=== PATIENT | male | born 1940 | race Caucasian/White ===

== ENCOUNTER 2017-08-17 09:11 | Inpatient (IN) | payer OTHER ==
[~2017-08-17] VITALS: Ht 177.8 cm; Wt 57.9 kg
--- NOTE | ~2017-08-17 | HC ---
[facility] [place] [address] CONSULTATION Name: SUKHJINDER HILL Room #: 411-P [facility] IN M.R.#: [id number] Admission: 08/17/17 Attend Phys: Liliana Jalloh MD Discharge: Date of : 42 Report #: [id number] THIS REPORT FOR: //name// CC: Liliana Jalloh DATE OF SERVICE: 08/19/2017 CHIEF COMPLAINT: Multiple ulcerations. HISTORY OF PRESENT ILLNESS: This is a 77-year-old male patient, seen in his room today. I have been asked to see him with regard to multiple abrasions to the lower extremities and the right iliac crest region. The patient was admitted to the Emergency Room with generalized weakness. It is unclear as to whether he had fallen at home. He was, however, found on the floor without the strength to get up and was brought in to the hospital for further evaluation and treatment. PAST MEDICAL HISTORY: The patient's past medical history is really unremarkable for significant previous illness or injury. FAMILY HISTORY: Unknown. SOCIAL HISTORY: The patient lives alone with no history of alcohol or tobacco use. ALLERGIES: None. MEDICATIONS: Have been none prior to this hospitalization. REVIEW OF SYSTEMS: CONSTITUTIONAL: The patient denies fever, chills or weight loss. NEUROLOGICAL: The patient does complain of generalized weakness. Denies focal weakness. EYES: The patient denies visual changes, redness or drainage. ENT: The patient denies earache, nasal drainage, sore throat. CARDIOVASCULAR: The patient denies chest pain, palpitations, or diaphoresis. PULMONARY: The patient denies cough, shortness of breath. GASTROINTESTINAL: The patient denies nausea, vomiting, diarrhea, or abdominal pain. ORTHOPEDIC: The patient does note ulceration on his legs, he is aware. Other systems in a 12-point review of systems are negative. PHYSICAL EXAMINATION: VITAL SIGNS: At this time include pulse 65, blood pressure 118/72, respiratory rate 18, temperature 98.7. GENERAL: This is a chronically ill-appearing male patient who appears to be in [address] [address] CONSULTATION Name: SUKHJINDER HILL Room #: 411- ADM IN M.R.#: [id number] Admission: 08/17/17 Attend Phys: Liliana Jalloh MD Discharge: Date of : 41 Report #: [id number] no obvious distress. HEENT: Head is normocephalic. Nose is clear. NECK: Supple. LUNGS: Clear. HEART: Regular rhythm. ABDOMEN: Soft, bowel sounds present. GENITOURINARY: Demonstrates testes are descended bilaterally. He has some ecchymosis to the shaft of his penis. There is no open ulceration, no evidence of infection. He has an abrasion to the right lateral proximal fibular region. EXTREMITIES: He has abrasion to the left lateral ankle and left pretibial region, left lateral knee and right lateral ankle. BACK: Demonstrates abrasions and some eschar on the right iliac crest region and some small eschar on the left medial heel, once again possibly traumatic in origin. CLINICAL IMPRESSION: 1. Multiple abrasions including both lower extremities and the right posterior iliac crest. 2. Generalized weakness. RECOMMENDATIONS: At this point in time, we will use Betadine to the areas of eschar. We will place a bordered foam to the right iliac crest. Recommend turning and repositioning, aggressive nutritional support for wound healing. I appreciate being asked to see him in consultation. <ELECTRONICALLY SIGNED> By: Ronnie Mabry MD 08/20/17 1005 1833 02 Ronnie Mabry MD /nt
--- NOTE | ~2017-08-17 | EKG ---
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
--- NOTE | ~2017-08-17 | 2DMMODE ---
[facility] [address] [place] [address] 2 D/M-MODE ECHOCARDIOGRAM Name: SUKHJINDER HILL Room #: 208-P ADM IN M.R.#: [id number] Admission: 08/17/17 Attend Phys: Natali Dennis Discharge: Date of : 42 Date of Service: 08/20/17 1630 Report #: [id number] THIS REPORT FOR: //name// APPROVED REPORT Study performed: 08/20/2017 15:24:59 EXAM: Comprehensive 2D, Doppler, and color-flow Echocardiogram Patient Location: Bedside Room #: 208 Status: routine BSA: 1.79 HR: 68 bpm BP: 133/88 mmHg Other Information Study Quality: Adequate Indications svt 2D Dimensions RVDd: 33.51 mm LVEF(%): 74.34 (>50%) IVSd: 9.30 (7-11mm) LVOT Diam: 21.66 (18-24mm) LVDd: 50.29 mm PWd: 8.93 (7-11mm) Ascending Ao: 36.35 (22-36mm) LVDs: 28.46 (25-40mm) Aortic Root: 34.95 mm IVC: 21.00 mm Newman's LVEF: 74.34 % Volumes Left Atrial Volume (Systole) Single Plane 4CH: 65.54 mL Single Plane 2CH: 60.67 mL LA ESV Index: 40.00 mL/m2 Aortic Valve AoV Peak Edilberto.: 1.44 m/s AO Peak Gr.: 8.25 mmHg LVOT Max P.30 mmHg LVOT Max V: 1.04 m/s JOHANNY Vmax: 2.66 cm2 Mitral Valve E/A Ratio: 0.7 MV Decel. Time: 272.10 ms MV E Max Edilberto.: 1.01 m/s [facility] [place] [address] 2 D/M-MODE [facility]ARDIOGRAM [facility]: [facility] #: [facility]-P [facility] IN M.R.#: [id number] Admission: 08/17/17 Attend Phys: Natali Dennis Discharge: Date of : 41 Date of Service: 08/20/17 1630 Report #: [id number] MV A Edilberto.: 1.36 m/s MV PHT: 78.91 ms IVRT: 110.73 ms Pulmonary Valve PV Peak Edilberto.: 1.04 m/s PV Peak Gr.: 4.31 mmHg IN End Vmax: 1.13 m/s Pulmonary Vein P Vein S: 0.91 m/s P Vein A: 0.32 m/s P Vein D: 0.37 m/s P Vein A Dur.: 110.7 msec P Vein S/D Ratio: 2.46 Tricuspid Valve TR Peak Edilberto.: 2.46 m/s TR Peak Gr.: 24.14 mmHg PA Pressure: 34.00 mmHg Left Ventricle The left ventricle is normal size. There is normal left ventricular wall thickness. The left ventricular systolic function is normal. The left ventricular ejection fraction is within the normal range. LVEF is 60-65%. Grade I - abnormal relaxation pattern. Right Ventricle The right ventricle is normal size. Atria Left atrium is dilated. The right atrium size is normal. Aortic Valve The aortic valve is normal in structure. Aortic valve is calcified. No aortic regurgitation is present. There is no aortic valvular stenosis. Mitral Valve The mitral valve is normal in structure. Trace mitral regurgitation. No evidence of mitral valve stenosis. Tricuspid Valve The tricuspid valve is normal in structure. There is trace tricuspid regurgitation.Estimated PAP 34 mmHg. There is mild pulmonary hypertension. Pulmonic Valve The pulmonary valve is normal in structure. Trace pulmonic [facility] [address] [place] [address] 2 D/M-MODE ECHOCARDIOGRAM Name: SUKHJINDER HILL Room #: 208-P [facility] IN [facility].#: [id number] Admission: 08/17/17 Attend Phys: Natali Dennis Discharge: Date of : 42 Date of Service: 08/20/17 1630 Report #: [id number] regurgitation. Great Vessels The aortic root is normal in size. IVC is dilated and collapses >50% with inspiration. Pericardium There is no pericardial effusion. <Conclusion> The left ventricle is normal size. LVEF is 60-65%. Left atrium is dilated. The aortic valve is normal in structure. Aortic valve is calcified. No aortic regurgitation is present. There is no aortic valvular stenosis. The mitral valve is normal in structure. Trace mitral regurgitation. The tricuspid valve is normal in structure. There is trace tricuspid regurgitation.Estimated PAP 34 mmHg. There is mild pulmonary hypertension. The pulmonary valve is normal in structure. Trace pulmonic regurgitation. There is no pericardial effusion. <ELECTRONICALLY SIGNED> By: Tye Henning MD 08/20/171629 29 29 Tye Henning MD /INF
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
--- NOTE | ~2017-08-17 | EKG ---
[address] [facility] [place] [address] ELECTROCARDIOGRAM REPORT Name: SUKHJINDER HILL Room #: 208-P ADM IN M.R.#: [id number] Admission: 08/17/17 Attend Phys: Liliana Jalloh MD Discharge: Date of : 42 Report #: [id number] THIS REPORT FOR: //name// [facility] Test Date: 2017-08-20 Test Time: 13:34:00 Pat Name: SUKHJINDER HILL Department: Room: 208 P Gender: M Biology Manager: Juan RAMIREZ : 1940 Requested By: Donal Sutton Order Number: [id number] MD: Gama Bauer Measurements Intervals [place] Rate: 70 P: 135 [place]: 219 QRS: -18 QRSD: 105 T: 46 QT: 414 QTc: 447 Interpretive Statements Sinus or ectopic atrial rhythm Borderline left axis deviation Electronically Signed On 08-20-2017 23:04:16 STUDENT ASSISTANT by Gama Bauer [email or web address] <ELECTRONICALLY SIGNED> By: Gama Bauer MD 08/20/17 2304 1334 1334 MD JOSE JUAN Downey
--- NOTE | ~2017-08-17 | EKG ---
[address] [place] [address] ELECTROCARDIOGRAM REPORT Name: SUKHJINDER HILL Room #: 411-P ADM IN M.R.#: [id number] Admission: 08/17/17 Attend Phys: Liliana Jalloh MD Discharge: Date of : 41 Report #: [id number] THIS REPORT FOR: //name// 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 : 1940 Requested By: Donal Sutton Order Number: [id number] MD: Gama Bauer Measurements Intervals [place] Rate: 187 P: 0 [place]: 39 QRS: -33 QRSD: 89 T: 141 QT: 273 QTc: 482 Interpretive Statements Supraventricular tachycardia Left axis deviation Repolarization abnormality, prob rate related Compared to ECG 08/17/2017 09:50:42 Early repolarization now present Sinus rhythm no longer present Electronically Signed On 08-20-2017 11:43:37 GLOBAL PRODUCT MANAGER by Gama Bauer [email or web address] <ELECTRONICALLY SIGNED> By: Gama Bauer MD 08/20/17 1143 1135 1135 Gama Bauer MD /EPI
[2017-08-17 09:13] VITALS: BP 130/70
[2017-08-17 09:48] LABS: ABSOLUTE NEUTROPHILS 13.6 thou/uL (1.4-8.2); BASOPHILS 0.1 % (0.0-2.0); HEMATOCRIT 35.8 % (42.0-52.0); HEMOGLOBIN 12.5 gm/dL (14.0-18.0); LYMPHOCYTES 2.8 % (24.0-44.0); MCH 32.2 pg (26.0-34.0); MCHC 34.8 g/dL (28.0-37.0); MCV 92.7 fL (80.0-100.0); MONOCYTES 5.3 % (1.0-8.0); PLATELET COUNT 160 thou/uL (150-400); POLYS 91.8 % (36.0-66.0); RBC 3.86 mil/uL (4.50-6.00); RDW 14.2 % (10.5-14.5); WBC 14.8 thou/uL (4.0-11.0)
[2017-08-17 10:04] LABS: CREATININE 1.4 mg/dL (0.7-1.3); POTASSIUM 3.4 mmol/L (3.5-5.1)
[2017-08-17 10:13] LABS: TROPONIN-I 0.11 ng/mL (<0.06)
[2017-08-17 10:16] LABS: URINE BILIRUBIN NEGATIVE (Negative); URINE BLOOD 3+ (Negative); URINE CLARITY SL CLOUDY; URINE COLOR YELLOW; URINE GLUCOSE-RANDOM* NEGATIVE (Negative); URINE KETONES TRACE (Negative); URINE LEUKOCYTES NEGATIVE (Negative); URINE NITRITE NEGATIVE (Negative); URINE PROTEIN (DIPSTICK) 1+ (Negative); URINE SPECIFIC GRAVITY >= 1.030 (1.005-1.035); URINE UROBILINOGEN 0.2 E.U./dl (0.2-1.0)
[2017-08-17 11:05] LABS: CASTS None Seen /LPF (None Seen); COARSE GRANULAR CASTS 0-3 Few /LPF (None Seen); CRYSTALS None Seen /LPF (None Seen); FINE GRANULAR CASTS 0-3 Few /LPF (None Seen); HYALINE CASTS 0-3 Few /LPF (None Seen); MUCUS >6 Heavy strn/LPF (None Seen); SQUAMOUS 4-10 Moderate /LPF (0-3)
[2017-08-17 11:06] LABS: URINE RBC 3-10 Few /HPF (0-2); URINE WBC None Seen /HPF (0-5)
[2017-08-17 11:09] LABS: BACTERIA None Seen /HPF (None Seen)
[2017-08-17 11:47] VITALS: BP 130/70
[2017-08-17 12:03] VITALS: BP 133/56
[2017-08-17 12:12] VITALS: BP 132/78
[2017-08-17 16:00] VITALS: BP 116/65
[2017-08-17 18:50] VITALS: BP 135/86
[2017-08-18 04:00] VITALS: BP 120/69
[2017-08-18 06:23] LABS: HEMATOCRIT 29.8 % (42.0-52.0); MCH 32.7 pg (26.0-34.0); MCHC 34.7 g/dL (28.0-37.0); MCV 94.3 fL (80.0-100.0); RBC 3.17 mil/uL (4.50-6.00); RDW 14.3 % (10.5-14.5); WBC 11.3 thou/uL (4.0-11.0)
[2017-08-18 06:25] LABS: HEMOGLOBIN 10.4 gm/dL (14.0-18.0)
[2017-08-18 06:36] LABS: CALCIUM 8.2 mg/dL (8.5-10.1); CREATININE 0.9 mg/dL (0.7-1.3); POTASSIUM 3.3 mmol/L (3.5-5.1)
[2017-08-18 08:00] VITALS: BP 143/99
[2017-08-18 16:00] VITALS: BP 130/80
[2017-08-18 20:32] VITALS: BP 129/77
[2017-08-19 04:05] VITALS: BP 120/73
[2017-08-19 07:01] LABS: ALBUMIN 2.6 g/dL (3.4-5.0); CALCIUM 8.3 mg/dL (8.5-10.1); CREATININE 0.9 mg/dL (0.7-1.3); POTASSIUM 3.8 mmol/L (3.5-5.1); TOTAL BILIRUBIN 0.7 mg/dL (<0.1-1.0); TOTAL PROTEIN 5.4 g/dL (6.4-8.2)
[2017-08-19 09:53] VITALS: BP 118/72
[2017-08-19 20:39] VITALS: BP 132/75
[2017-08-20 04:40] VITALS: BP 143/77
[2017-08-20 06:48] LABS: CALCIUM 8.2 mg/dL (8.5-10.1); CREATININE 0.8 mg/dL (0.7-1.3); POTASSIUM 3.7 mmol/L (3.5-5.1)
[2017-08-20 08:00] VITALS: BP 132/86
[2017-08-20 14:08] LABS: ALBUMIN 2.7 g/dL (3.4-5.0); DIRECT BILIRUBIN 0.2 mg/dL (<0.1-0.3); TOTAL BILIRUBIN 0.8 mg/dL (<0.1-1.0); TOTAL PROTEIN 5.1 g/dL (6.4-8.2)
[2017-08-20 21:15] VITALS: BP 128/68
[2017-08-21 00:53] VITALS: BP 103/57
[2017-08-21 03:46] LABS: HEMOGLOBIN 10.9 gm/dL (14.0-18.0); MCH 32.7 pg (26.0-34.0); MCV 93.4 fL (80.0-100.0); RBC 3.32 mil/uL (4.50-6.00); RDW 13.9 % (10.5-14.5); WBC 9.8 thou/uL (4.0-11.0)
[2017-08-21 03:58] LABS: ALBUMIN 2.7 g/dL (3.4-5.0); CALCIUM 8.5 mg/dL (8.5-10.1); CREATININE 0.8 mg/dL (0.7-1.3); TOTAL BILIRUBIN 0.8 mg/dL (<0.1-1.0); TOTAL PROTEIN 5.7 g/dL (6.4-8.2)
[2017-08-21 04:05] VITALS: BP 125/80
[2017-08-21 09:31] VITALS: BP 142/80
[2017-08-21 15:14] VITALS: BP 123/66
[2017-08-21 19:32] VITALS: BP 129/75
[2017-08-22 04:40] VITALS: BP 164/76
[2017-08-22 04:49] LABS: ALBUMIN 2.8 g/dL (3.4-5.0); CALCIUM 8.6 mg/dL (8.5-10.1); CREATININE 0.9 mg/dL (0.7-1.3); POTASSIUM 4.6 mmol/L (3.5-5.1); TOTAL BILIRUBIN 0.7 mg/dL (<0.1-1.0); TOTAL PROTEIN 5.8 g/dL (6.4-8.2)
[2017-08-22] MEDS ORDERED: FLOMAX0.4 MG PO (11:09)
[2017-08-22] MEDS ORDERED: BISAC-EVAC10 MG RECTAL (11:10)
[2017-08-22] MEDS ORDERED: LACTULOSE20 GM/30 M PO (11:10)
[2017-08-22] MEDS ORDERED: MIRALAX17 GM PO (11:10)
[2017-08-22] MEDS ORDERED: VERAPAMIL HCL 880 M1 PO (11:10)
[2017-08-22] MEDS ORDERED: ACETAMINOPHEN325 M1 PO (11:10)
[2017-08-22 12:00] VITALS: BP 113/65
[2017-08-22 14:21] VITALS: BP 113/65
[2017-08-22 16:10] LABS: HAV IgM AB (ANTI-HAV IgM) Negative (Negative); HEPATITIS B SURFACE AG Negative (Negative); HEPATITIS C VIRUS AB <0.1 (0.0-0.9)
== END 2017-08-22 15:04 | DRG 683 ==
LOC: ER 09:11 → EROBS 10:39 → 4N 10:39 → 2N 08-20 12:13
PROVIDERS: Emergency Medicine; Internal Medicine; Internal Medicine Geriatric Medicine
DX: N17.9 Acute kidney failure, unspecified (principal); M62.82 Rhabdomyolysis; I47.1 Supraventricular tachycardia; E44.0 Moderate protein-calorie malnutrition; Z68.1 Body mass index [BMI] 19.9 or less, adult; Z60.2 Problems related to living alone; R54 Age-related physical debility; S90.812A Abrasion, left foot, initial encounter; W18.39XA Other fall on same level, initial encounter; N40.0 Benign prostatic hyperplasia without lower urinary tract symptoms; I10 Essential (primary) hypertension; S09.90XA Unspecified injury of head, initial encounter; Y93.89 Activity, other specified; Y92.89 Other specified places as the place of occurrence of the external cause; Y99.8 Other external cause status
CPT/HCPCS: 10081; 10091

== ENCOUNTER 2018-07-23 08:07 | Inpatient (IN) | payer OTHER ==
[~2018-07-23] VITALS: Ht 167.6 cm; Wt 68.0 kg
[~2018-07-23 08:07] MED LIST: ACETAMINOPHEN325 M1 PO; BISAC-EVAC10 MG RECTAL; FLOMAX0.4 MG PO; LACTULOSE20 GM/30 M PO; MIRALAX17 GM PO; VERAPAMIL HCL 880 M1 PO
[2018-07-23 08:08] VITALS: BP 158/86
[2018-07-23] MEDS ORDERED: VERAPAMIL E.R240 M1 PO (08:20)
[2018-07-23] MEDS ORDERED: SERTRALINE HCL50 MG PO (08:20)
[2018-07-23] MEDS ORDERED: MAPAP325 MG PO (08:21)
[2018-07-23] MEDS ORDERED: COLACE100 MG PO (08:21)
[2018-07-23 08:22] LABS: ABSOLUTE NEUTROPHILS 5.1 thou/uL (1.4-8.2); BASOPHILS 0.7 % (0.0-2.0); EOSINOPHILS 2.4 % (0.0-3.0); HEMATOCRIT 35.2 % (42.0-52.0); HEMOGLOBIN 12.7 gm/dL (14.0-18.0); LYMPHOCYTES 15.9 % (24.0-44.0); MCH 33.7 pg (26.0-34.0); MCV 93.7 fL (80.0-100.0); MONOCYTES 8.4 % (1.0-8.0); PLATELET COUNT 201 thou/uL (150-400); POLYS 72.6 % (36.0-66.0); RBC 3.75 mil/uL (4.50-6.00); RDW 13.6 % (10.5-14.5)
[2018-07-23] MEDS ORDERED: LOPERAMIDE 2 MG2 M1 PO (08:23)
[2018-07-23] MEDS ORDERED: NYSTATIN15 G3 TOP (08:24)
[2018-07-23 08:28] LABS: CALCIUM 8.8 mg/dL (8.5-10.1); CREATININE 0.8 mg/dL (0.7-1.3)
[2018-07-23 08:32] LABS: POTASSIUM 2.7 mmol/L (3.5-5.1)
[2018-07-23 08:34] LABS: ALBUMIN 3.3 g/dL (3.4-5.0); TOTAL BILIRUBIN 0.7 mg/dL (<0.1-1.0); TOTAL PROTEIN 6.1 g/dL (6.4-8.2)
[2018-07-23 08:35] LABS: URINE BILIRUBIN NEGATIVE (Negative); URINE BLOOD 1+ (Negative); URINE CLARITY SL CLOUDY; URINE COLOR YELLOW; URINE GLUCOSE-RANDOM* NEGATIVE (Negative); URINE KETONES NEGATIVE (Negative); URINE LEUKOCYTES NEGATIVE (Negative); URINE NITRITE NEGATIVE (Negative); URINE PROTEIN (DIPSTICK) NEGATIVE (Negative); URINE SPECIFIC GRAVITY 1.025 (1.005-1.035); URINE UROBILINOGEN 0.2 E.U./dl (0.2-1.0)
[2018-07-23 08:50] LABS: CASTS None Seen /LPF (None Seen); CRYSTALS None Seen /LPF (None Seen); SQUAMOUS None Seen /LPF (0-3); URINE RBC 0-2 Rare /HPF (0-2)
[2018-07-23 09:04] LABS: URINE WBC 0-5 Rare /HPF (0-5)
[2018-07-23 09:05] LABS: BACTERIA 1-9 Few /HPF (None Seen); CALCIUM OXALATE 4-10 Moderate /LPF (None Seen)
[2018-07-23 10:29] VITALS: BP 164/87
[2018-07-23 11:17] VITALS: BP 138/84
[2018-07-23] MEDS ORDERED: VITAMIN D1000 UNIT PO (11:56)
[2018-07-23 20:00] VITALS: BP 157/76
[2018-07-24 04:30] VITALS: BP 143/77
[2018-07-24 06:03] LABS: ABSOLUTE NEUTROPHILS 4.5 thou/uL (1.4-8.2); BASOPHILS 0.7 % (0.0-2.0); EOSINOPHILS 3.3 % (0.0-3.0); HEMATOCRIT 34.7 % (42.0-52.0); HEMOGLOBIN 12.7 gm/dL (14.0-18.0); LYMPHOCYTES 22.6 % (24.0-44.0); MCHC 36.6 g/dL (28.0-37.0); MCV 92.9 fL (80.0-100.0); MONOCYTES 8.1 % (1.0-8.0); PLATELET COUNT 189 thou/uL (150-400); POLYS 65.3 % (36.0-66.0); RBC 3.73 mil/uL (4.50-6.00); RDW 13.9 % (10.5-14.5); WBC 6.9 thou/uL (4.0-11.0)
[2018-07-24 06:35] LABS: CALCIUM 8.5 mg/dL (8.5-10.1); CREATININE 0.7 mg/dL (0.7-1.3); MAGNESIUM 1.9 mg/dL (1.8-2.4); POTASSIUM 3.5 mmol/L (3.5-5.1)
[2018-07-24 07:40] VITALS: BP 132/71
[2018-07-24 07:47] LABS: PLATELET ESTIMATE NORMAL
[2018-07-24 07:51] LABS: LARGE PLATELETS RARE
== END 2018-07-24 12:50 | DRG 640 ==
LOC: ER 08:07 → EROBS 10:20 → 4E 10:20
PROVIDERS: Emergency Medicine; Nurse Practitioner
DX: E87.6 Hypokalemia (principal); E43 Unspecified severe protein-calorie malnutrition; R19.7 Diarrhea, unspecified; N40.0 Benign prostatic hyperplasia without lower urinary tract symptoms; F03.90 Unspecified dementia, unspecified severity, without behavioral disturbance, psychotic disturbance, mood disturbance, and anxiety; Z66 Do not resuscitate; R00.1 Bradycardia, unspecified; Z79.899 Other long term (current) drug therapy
CPT/HCPCS: 10084

== ENCOUNTER 2019-03-10 03:49 | Emergency (ER) | payer OTHER ==
[~2019-03-10] VITALS: Ht 172.7 cm; Wt 72.6 kg
[~2019-03-10 03:49] MED LIST changes: +COLACE100 MG PO; +LOPERAMIDE 2 MG2 M1 PO; +MAPAP325 MG PO; +NYSTATIN15 G3 TOP; +SERTRALINE HCL50 MG PO; +VERAPAMIL E.R240 M1 PO; +VITAMIN D1000 UNIT PO
[2019-03-10] MEDS ORDERED: BUSPIRONE HCL5 MG PO (04:03)
[2019-03-10] MEDS ORDERED: BUSPIRONE HCL10 MG PO (04:04)
[2019-03-10] MEDS ORDERED: TRAZODONE HCL100 MG PO (04:04)
[2019-03-10] MEDS ORDERED: MELATIN3 MG PO (04:05)
[2019-03-10 05:06] VITALS: BP 126/63
== END 2019-03-10 05:07 ==
LOC: ER 03:49
DX: F03.90 Unspecified dementia, unspecified severity, without behavioral disturbance, psychotic disturbance, mood disturbance, and anxiety (principal); N40.0 Benign prostatic hyperplasia without lower urinary tract symptoms

== ENCOUNTER 2019-07-09 11:46 | Emergency (ER) | payer OTHER ==
[~2019-07-09] VITALS: Ht 180 cm; Wt 77.1 kg
[~2019-07-09 11:46] MED LIST changes: +BUSPIRONE HCL10 MG PO; +BUSPIRONE HCL5 MG PO; +MELATIN3 MG PO; +TRAZODONE HCL100 MG PO
[2019-07-09] MEDS ORDERED: LEXAPRO20 MG PO (11:56)
[2019-07-09] MEDS ORDERED: VITAMIN B-121000 MC2 PO (11:58)
[2019-07-09] MEDS ORDERED: CALMOSEPTINE O3.5 GM TOP (11:59)
[2019-07-09] MEDS ORDERED: CARBIDOPA-LEVO1 EA10 PO (11:59)
[2019-07-09] MEDS ORDERED: LOPERAMIDE2 MG PO (12:00)
[2019-07-09 12:20] LABS: ABSOLUTE NEUTROPHILS 7.9 thou/uL (1.4-8.2); BASOPHILS 0.5 % (0.0-2.0); EOSINOPHILS 0.1 % (0.0-3.0); HEMATOCRIT 37.6 % (42.0-52.0); HEMOGLOBIN 12.7 gm/dL (14.0-18.0); LYMPHOCYTES 6.1 % (24.0-44.0); MCH 32.8 pg (26.0-34.0); MCHC 33.7 g/dL (28.0-37.0); MCV 97.2 fL (80.0-100.0); MONOCYTES 4.9 % (1.0-8.0); PLATELET COUNT 183 thou/uL (150-400); POLYS 88.4 % (36.0-66.0); RBC 3.87 mil/uL (4.50-6.00); RDW 14.9 % (10.5-14.5); WBC 8.9 thou/uL (4.0-11.0)
[2019-07-09 12:31] LABS: CALCIUM 8.8 mg/dL (8.5-10.1); CREATININE 0.9 mg/dL (0.7-1.3); POTASSIUM 3.4 mmol/L (3.5-5.1)
[2019-07-09 12:37] LABS: ALBUMIN 3.6 g/dL (3.4-5.0); DIRECT BILIRUBIN 0.2 mg/dL (<0.1-0.3); TOTAL BILIRUBIN 0.8 mg/dL (<0.1-1.0); TOTAL PROTEIN 6.5 g/dL (6.4-8.2)
[2019-07-09 13:01] LABS: URINE BILIRUBIN NEGATIVE (Negative); URINE BLOOD 1+ (Negative); URINE CLARITY CLEAR; URINE COLOR YELLOW; URINE GLUCOSE-RANDOM* NEGATIVE (Negative); URINE KETONES NEGATIVE (Negative); URINE LEUKOCYTES-REFLEX NEGATIVE (Negative); URINE NITRITE-REFLEX NEGATIVE (Negative); URINE PROTEIN (DIPSTICK) 1+ (Negative); URINE UROBILINOGEN 0.2 E.U./dl (0.2-1.0)
[2019-07-09 13:41] LABS: AMORPHOUS PHOSPHATES Moderate /LPF (None Seen); BACTERIA-REFLEX 1-9 Few /HPF (None Seen); CASTS None Seen /LPF (None Seen); SQUAMOUS None Seen /LPF (0-3); URINE RBC 3-10 Few /HPF (0-2)
[2019-07-09 13:42] LABS: URINE WBC-REFLEX 0-5 Rare /HPF (0-5)
[2019-07-09 13:44] VITALS: BP 137/78
--- NOTE | 2019-07-10 09:56 | EKG ---
[address] [place] [address] ELECTROCARDIOGRAM REPORT Name: SUKHJINDER HILL Room #: DEP Lorenzo#: [id number] Admission: 07/09/19 Attend Phys: Discharge: 07/09/19 Date of : 42 Report #: [id number] THIS REPORT FOR: //name// [facility] ED Test Date: 2019-07-09 Test Time: 11:56:30 Pat Name: SUKHJINDER HILL Department: Room: Gender: M Audit Analyst: GARRET : 1940 Requested By: Inessa Arndt Order Number: [id number] MD: Ari Pro Measurements Intervals [place] Rate: 72 P: 64 [place]: 121 QRS: -53 QRSD: 100 T: 52 QT: 406 QTc: 445 Interpretive Statements Sinus rhythm Ventricular premature complex Left anterior fascicular block Abnormal R-wave progression, late transition Compared to ECG 08/20/2017 13:34:00 Ventricular premature complex(es) now present Left anterior fascicular block now present Electronically Signed On 07-10-2019 9:55:52 NOZZLE TENDER by Ari Pro [email or web address] <ELECTRONICALLY SIGNED> By: Ari Pro MD, [facility] 07/10/19 0955 1156 1156 Ari Pro MD, [facility] /EPI
== END 2019-07-09 15:09 | disposition home or self-care (01) ==
LOC: ER 11:46
PROVIDERS: Emergency Medicine
DX: R26.9 Unspecified abnormalities of gait and mobility (principal); I10 Essential (primary) hypertension; Z79.899 Other long term (current) drug therapy; W07.XXXA Fall from chair, initial encounter; Y93.89 Activity, other specified; Y92.89 Other specified places as the place of occurrence of the external cause; Y99.9 Unspecified external cause status